=== PATIENT | male | born 1940 | race Hispanic/Latino ===

== ENCOUNTER 2017-05-29 16:26 | Emergency (ER) | payer OTHER, MEDICARE ==
[2017-05-29 16:49] VITALS: BMI 25.4
[2017-05-29 16:50] VITALS: BP 168/81; PULSE 69; RESP 18; TEMP 97.6; O2SAT 97
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
== END 2017-05-29 17:32 | disposition home or self-care (01) ==
LOC: H.ER 16:26
DX: M54.5 Low back pain (principal); V43.62XA Car passenger injured in collision with other type car in traffic accident, initial encounter; Y92.410 Unspecified street and highway as the place of occurrence of the external cause